=== PATIENT | female | born 1985 | race Caucasian/White ===

== ENCOUNTER 2019-11-07 14:24 | Emergency (ER) | payer OTHER, SELFPAY ==
--- NOTE | ~2019-11-07 | XR_ITS ---
XR shoulder RT 1V DATE: 11/07/2019 14:50 INDICATION: Fall, right shoulder injury, pain TECHNIQUE: 4 views COMPARISON: None FINDINGS: There is a nondisplaced comminuted fracture of the greater tuberosity of the proximal humer us. The fracture extends into the lateral aspect of the right humeral head. No other fracture or dislocation. IMPRESSION: Comminuted nondisplaced fracture greater tuberosity, extending into lateral aspect of hum eral head Reviewed, dictated and finalized at location A. IMPRESSION: Comminuted nondisplaced fracture greater tuberosity, extending into lateral aspect of humeral head
[2019-11-07 14:35] VITALS: BP 145/102; PULSE 86; RESP 20; TEMP 37.4; O2SAT 100
--- NOTE | 2019-11-07 15:06 | ED.UPPEXIN ---
HPI - Extremity Injury (Upper) General Chief Complaint: Extremity Injury, Upper Stated Complaint: Right Shoulder Pain Source: patient Mode of arrival: ambulatory Limitations: no limitations History of Present Illness HPI narrative: The patient, who is a nonsmoker/ occ drinker, presents with c/o rt shoulder pain. Pt states she tripped and fell on her rt side at approximately 100PM [possibly at work , smoking marijuana] . Pt notes tingling to her RUE, but denies any neck pain, back pain or any other injuries following her fall. MD complaint: injury to: shoulder (rt) Onset (ago): hour(s) (2) Other Extremity Injury: Right: shoulder Other injuries: none Place: outdoors Exacerbating factors: movement of extremity Context: fall Associated symptoms: other (tingling to RUE) Related Data Allergies Allergy/AdvReac Type Severity Reaction Status Date / Time Cephalosporins Allergy Mild Verified 11/12/18 06:49 levofloxacin Allergy Mild Unverified 11/12/18 06:49 Quinolones Allergy Mild hives Verified 11/12/18 06:49 silver nitrate Allergy Unknown Verified 11/12/18 06:49 silver sulfadiazine Allergy Unknown Verified 11/12/18 06:49 NITRATE Allergy Unknown Uncoded 11/12/18 06:49 Onions-swelling Allergy Unknown Uncoded 02/16/03 12:04 SILVERPROTEIN Allergy Unknown Uncoded 12/08/08 11:31 Review of Systems Review of Systems: Narrative: The patient has been informed that they may have pre-hypertension or Hypertension based on a BP reading in the department. I recommend that the patient call the primary care provider listed on their discharge instructions or a physician of their choice this week to arrange follow up for further evaluation of possible pre-hypertension or Hypertension General/Constitutional: Denies: weight loss,fever Eyes: Denies: Redness,discharge Ears/Nose/Throat: Denies: Epistaxis,ear discharge Respiratory: Denies: Hemoptysis Gastrointestinal: Denies: Vomiting, Bleeding-rectal PMFSH Social History Social History Gender identity (if verbalized by the patient): Female Comments At time of signature, agree with nursing past medical, surgical, social and family history. There is no relevant family history pertinent to the presenting complaint Exam Narrative: Exam Narrative: General Appearance: Well appearing, Conjunctiva clear Neck: Supple Respiratory: Airway patent, No respiratory distress Shoulder: Normal strength (nonintact/ limited flexion/extension by pain), Tenderness ( laterally/ deltoid , with mod decreased ROM), no swelling (laterally), Skin: Warm, Dry, Normal color Neurological: A&O x3,, Normal affect Course Vital Signs Vital signs: Vital Signs Temperature 99.4 F 11/07/19 14:35 Pulse Rate 86 11/07/19 14:35 Respiratory Rate 20 11/07/19 14:35 Blood Pressure 145/102 H 11/07/19 14:35 Pulse Oximetry 100 11/07/19 14:35 Temperature 99.4 F 11/07/19 14:35 Pulse Rate 86 11/07/19 14:35 Respiratory Rate 20 11/07/19 14:35 Blood Pressure 145/102 H 11/07/19 14:35 Pulse Oximetry 100 11/07/19 14:35 Discharge Plan Discharge Clinical Impression: Fracture, humerus closed Qualifiers: Encounter type: initial encounter Humerus Location: proximal Fracture morphology: unspecified fracture morphology Laterality: right Qualified Code(s): S42.201A - Unspecified fracture of upper end of right humerus, initial encounter for closed fracture Patient Disposition: Home, Self-Care Condition: Improved Instructions: Proximal Humerus Fracture (ED) Prescriptions: New acetaminophen-codeine [Tylenol-Codeine #3] 300-30 mg tablet 1 tablet PO Q4H PRN (Reason: pain) Qty: 20 RF: 0 Interventions: Discharge Disposition Last Done: 11/07/19 15:14 Follow-up/Referrals: Naseem Orellana MD [Physician] - PHYSICIAN,MICROBIAL SPECIALIST [Primary Care Provider] - Discharge Date/Time: 11/07/19 15:29
== END 2019-11-07 15:29 | disposition home or self-care (01) ==
PROVIDERS: Emergency Provider Emergency Medicine
DX: S42.254A Nondisplaced fracture of greater tuberosity of right humerus, initial encounter for closed fracture (principal); W01.0XXA Fall on same level from slipping, tripping and stumbling without subsequent striking against object, initial encounter
CPT/HCPCS: 73020; 99214; G0463

== ENCOUNTER 2020-03-08 10:14 | Outpatient (CLI) | payer OTHER, SELFPAY ==
--- NOTE | 2020-03-08 10:18 | ECG_ITS ---
Measurements Intervals [place] Rate: 78 P: 68 MT: 160 QRS: 53 QRSD: 93 T: 70 QT: 387 QTc: 442 Interpretive Statements SINUS RHYTHM BASELINE ARTIFACT- II, III, AVF NORMAL ECG Electronically Signed On 03-08-2020 10:58:14 CDT by Luis A Michael D.O.
== END 2020-03-08 10:15 | disposition home or self-care (01) ==
PROVIDERS: Visit Provider Orthopaedic Surgery
DX: I10 Essential (primary) hypertension (principal)
CPT/HCPCS: 93005

== ENCOUNTER 2020-03-12 00:54 | Outpatient (CLI) | payer OTHER, SELFPAY ==
[2020-03-12 18:32] LABS: SARS-CoV-2 RNA PCR Negative
== END 2020-03-12 00:55 | disposition home or self-care (01) ==
LOC: ANHCOVIDDT 00:55
PROVIDERS: Visit Provider Orthopaedic Surgery
DX: Z01.812 Encounter for preprocedural laboratory examination (principal); Z11.59 Encounter for screening for other viral diseases
CPT/HCPCS: 87635; C9803; U0003

== ENCOUNTER 2020-03-15 02:22 | Day surgery (SDC) | payer OTHER, SELFPAY ==
[2020-03-07 11:55] VITALS: BMI 24.7
--- NOTE | 2020-03-07 12:42 | PM.IMHP ---
H&P: HPI History of Present Illness Chief complaint: right shoulder adhesive capsulitis Narrative: Julissa Castillo is a 34 year old female Shoulder/Arm Injury/Condition Pt presents with right shoulder pain s/p proximal humerus fracture DOI 11/07/19 ([id number]) Dominant hand: right Current symptoms: Reports instability, stiffness and weakness Location: anterior, proximal and submandibular Character: intermittent Onset: 3-4 weeks Exacerbated by: lifting, rotational activities, prolonged activity, reaching/overhead motion and lying on affected side Chief Complaint Chief Complaint: see Reason for Visit (see hpi) Duration: months Severity: moderate Associated signs and symptoms: symptoms reported: (see hpi) Exacerbating/relieving factors: exacerbating factors: (see hpi) and relieving factors: (see hpi ) Review of Systems Review of Systems: All systems reviewed & are unremarkable except as noted in HPI and below Constitutional: Constitutional: Denies headache(s) and Denies weakness Eyes: Eyes: Denies blurry vision, Denies change in vision and Denies loss of vision ENT: Denies dizziness, Denies dry mouth, Denies headache(s) and Denies nasal congestion Cardiovascular: Cardiovascular: Denies chest pain, Denies syncope, Denies leg edema and Denies dyspnea on exertion Respiratory: Respiratory: Denies cough and Denies dyspnea on exertion Gastrointestinal: Gastrointestinal: Denies abdominal pain, Denies constipation and Denies diarrhea Genitourinary: Genitourinary: Denies urinary frequency Musculoskeletal: Musculoskeletal: Reports as per HPI and Denies numbness Integumentary/Breasts: Skin/Breast: Reports system reviewed and no additional complaints, except as docu Neurologic: Denies dizziness, Denies syncope, Denies headache(s), Denies loss of vision, Denies numbness and Denies weakness Psychiatric: Psychiatric: Reports no additional psychiatric complaints Endocrine: Endocrine: Reports no additional endocrine complaints Hematologic/Lymphatic: Hematologic/Lymphatic: Reports no additional hematologic/lymphatic complaints [facility] Social History Social History Smoking packs per day: 0.5 Smoking cigarettes per day: 10.0 Years smoked: 20 Smoking pack-years: 10.00 Smoking status: Current every day smoker Tobacco type: cigarettes Alcohol intake: current Drinks per week: 2 Substance use: former Substance use type: marijuana Last use: 1-2 YEARS AGO Gender identity (if verbalized by the patient): Female Spiritual care concerns: No Meds Home Medications and Allergies Home Medications Medication Instructions Recorded Confirmed Type ibuprofen 600 - 800 mg PO QID PRN 03/07/20 03/07/20 History Allergies Allergy/AdvReac Type Severity Reaction Status Date / Time levofloxacin Allergy Mild Itching Verified 03/07/20 11:53 Quinolones Allergy Mild Itching Verified 03/07/20 11:53 silver nitrate Allergy Unknown Hives Verified 03/07/20 11:53 silver sulfadiazine Allergy Unknown Hives Verified 03/07/20 11:53 NITRATE Allergy Unknown Hives Uncoded 03/07/20 11:53 Onions-swelling Allergy Unknown Swelling Uncoded 03/07/20 11:53 SILVERPROTEIN Allergy Unknown Hives Uncoded 03/07/20 11:53 Exam Narrative: Exam Narrative: Const All systems reviewed & are unremarkable except as noted in HPI and below Reports no additional complaints Eyes Reports no additional complaints ENT Reports no additional complaints Card Reports no additional complaints Resp Reports no additional complaints GI Reports no additional complaints Reports no additional complaints Musc Reports as per HPI Skin/Breast Reports system reviewed and no additional complaints, except as documented Neuro Reports no additional complaints Psych Reports no additional complaints Endo Reports no additional complaints Chris/Lymph Reports no additional complaints Aller/Immun Reports no additi
[2020-03-15] VITALS (8 sets, daily range): BP systolic 138–173; BP diastolic 91–113; PULSE 61–87; RESP 14–18; TEMP 36.4–36.9; O2SAT 99–100
[2020-03-15] MEDS: LACTATED RINGERS 1,000 ML 30 ML IV CONT ×2 (09:50→12:30)
[2020-03-15] MEDS: ACETAMINOPHEN 500 MG TABLET 1000 MG PO (09:50)
[2020-03-15] MEDS: CELECOXIB 200 MG CAPSULE PO (09:50)
--- NOTE | 2020-03-15 11:10 | WPDHPUPDATE1 ---
History and Physical Update Update Date/Time: 03/15/20 11:10 History and Physical has been reviewed, including an updated exam of the patient. There are NO changes in the patient's condition. Risks, benefits, and alternatives have been discussed and questions answered. Patient agrees to proceed with procedure.
--- NOTE | 2020-03-15 11:11 | WPDHPUPDATE1 ---
History and Physical Update Update Date/Time: 03/15/20 11:11 History and Physical has been reviewed, including an updated exam of the patient. There are NO changes in the patient's condition. Risks, benefits, and alternatives have been discussed and questions answered. Patient agrees to proceed with procedure.
--- NOTE | 2020-03-15 11:20 | WPDANESEPPF ---
Anes - Initial Pre Proc Eval Procedure: Operation Date: 03/15/20 11:00 Proposed Procedures p Right Shoulder Manipulation Under Anesthesia, Right Shoulder Injection - Naseem Orellana MD Date/Time: 03/15/20 11:20 Surgeon: Naseem Orellana MD Pre Op Diagnosis: right shoulder adhesive capsulitis Patient Data Age: 34 Gender: F Height: 5 ft 3 in Weight: 66.7 kg Allergies Allergy/AdvReac Type Severity Reaction Status Date / Time levofloxacin Allergy Mild Itching Verified 03/15/20 09:30 Quinolones Allergy Mild Itching Verified 03/15/20 09:30 silver nitrate Allergy Unknown Hives Verified 03/15/20 09:30 silver sulfadiazine Allergy Unknown Hives Verified 03/15/20 09:30 NITRATE Allergy Unknown Hives Uncoded 03/15/20 09:30 Onions-swelling Allergy Unknown Swelling Uncoded 03/15/20 09:30 SILVERPROTEIN Allergy Unknown Hives Uncoded 03/15/20 09:30 Home Medications Medication Instructions Recorded Confirmed Type ibuprofen 600 - 800 mg PO QID PRN 03/07/20 03/15/20 History Patient hx anesthesia problems: none Family hx anesthesia problems: none PMFSH Social History Social History Smoking packs per day: 0.5 Smoking cigarettes per day: 10.0 Years smoked: 20 Smoking pack-years: 10.00 Smoking status: Current every day smoker Tobacco type: cigarettes Alcohol intake: current Drinks per week: 2 Substance use: former Substance use type: marijuana Last use: 1-2 YEARS AGO Gender identity (if verbalized by the patient): Female Spiritual care concerns: No Anes - Eval Final PreProcedure Day of Procedure 03/15/20 11:20 Patient weight: overweight Heart: regular rate and rhythm Lungs: clear to auscultation Airway: Mallampati scale class II Neurological: alert and oriented Last oral intake: >/= 8 hours ASA classification: III Emergent: no Anesthetic plan: proceed Anesthesia type and monitoring: general ETT and standard monitoring Informed Consent: The patient's anesthetic plan and its attendant risks and benefits were discussed with the patient/family/POA. Questions were solicited and answers provided to the satisfaction of the patient/family/POA.
[2020-03-15] MEDS: SCOPOLAMINE 1.5 MG PATCH TRANSDERM (11:29)
[2020-03-15] MEDS: methylPREDNISolone ACETATE 80 MG/ML VIAL IM (12:07)
--- NOTE | 2020-03-15 12:56 | SUR.PHASEI ---
DR GAO AT BEDSIDE SPEAKING TO PT. HE GENTLY MOVED RT ARM. PT TOLERATED WELL.
--- NOTE | 2020-03-15 12:56 | PM.OP ---
Procedure Note - Brief Procedure Note - Brief Date of procedure: 03/15/20 Pre-op diagnosis: right shoulder adhesive capsulitis Post-op diagnosis: same Procedure performed: left shoulder michael with injection Anesthesia: GETA Surgeon: Naseem Orellana MD Estimated blood loss (mL): 0 Complications: No immediate complications Condition: stable Disposition: PACU
--- NOTE | 2020-03-15 13:01 | SUR.PHASEI ---
DR LOVING NOTIFIED OF PT'S BP, 150-160/100'S. HR 68. PT MAY GO HOME. PT TO FOLLOW UP WITH PMD REGARDING BP.
--- NOTE | 2020-03-15 13:06 | SUR.PHASEI ---
PT TEARFUL. STATES SHE WANTS A PRESCRIPTION FOR PAIN MEDICATION TO GO HOME WITH. PT DID NOT TELL DR GAO THAT WHEN HE WAS AT BEDSIDE. WILL NOTIFY DR GAO WHEN HE IS OUT OF OR. PT VERBALIZED UNDERSTANDING. PT READY TO GO TO [facility] FOR A DRINK.
--- NOTE | 2020-03-16 12:17 | OP_ITS ---
DATE OF PROCEDURE: 03/15/2020 PREOPERATIVE DIAGNOSIS: Right shoulder adhesive capsulitis. POSTOPERATIVE DIAGNOSIS: Right shoulder adhesive capsulitis. PROCEDURE: Manipulation under anesthesia and injection of right shoulder. ANESTHESIA: General. COMPLICATIONS: None. INDICATIONS: This is a 34-year-old female who while at work, she sustained a fracture of the greater tuberosity, which was nondisplaced. After approximately 3 weeks, she attempted to have physical therapy, which because of financial reasons, she was unable. Eventually when the patient came and saw me, she had already as well issued Workmen's Compensation claim, and then she was able to do therapy, but then therapy did not help with motion and she developed adhesive capsulitis to the right shoulder and she did not progress and she was having pain. Once her fracture was healed, she was indicated for manipulation under anesthesia, right shoulder. DESCRIPTION OF PROCEDURE: The patient was taken to the operating room in stable condition today, placed in supine position. General anesthesia was induced, and then once the patient was chemically paralyzed, the right shoulder was manipulated. Audible lysis of adhesions were achieved, both in the abduction, forward flexion and internal and external rotation at both 90 degrees. Pictures were taken to assess the patient's passive range of motion. Once that was performed, then the right shoulder was prepped and approximately 2 cc of 80 mg of Depo-Medrol and 5 cc of Marcaine 0.5% without epinephrine were injected in the glenohumeral joint. The patient then was placed in a sterile dressing. She had her chemical paralysis reversed, and then she was sent to recovery room in stable condition. Elena I MT: [place]
== END 2020-03-15 14:10 | disposition home or self-care (01) ==
PROVIDERS: Visit Provider Orthopaedic Surgery
PROC: (CPT 23700; principal; 2020-03-15 11:00)
DX: M75.01 Adhesive capsulitis of right shoulder (principal); Z87.81 Personal history of (healed) traumatic fracture; F17.210 Nicotine dependence, cigarettes, uncomplicated
CPT/HCPCS: 23700; A9270; J0330; J1040; J2250; J2704; J3010; J7120

== ENCOUNTER 2020-08-20 13:24 | Emergency (ER) | payer OTHER, SELFPAY ==
--- NOTE | ~2020-08-20 | XR_ITS ---
EXAMINATION: XR chest 1V portable EXAM DATE: 08/20/2020 14:15 INDICATION: sob, wheezing . TECHNIQUE: Portable AP frontal chest x-ray was obtained. Comparison is made to prior examination from 05/01/2010. FINDINGS: The lungs are clear. There are no pleural effusions. The cardiomediastinal silhouette is within normal limits. There is no pneumothorax suspected. The bones and soft tissues are unremarkab le. IMPRESSION: No acute cardiopulmonary findings. Reviewed, dictated and finalized at location A. ROBE SPECIALIST
[2020-08-20 13:32] VITALS: BP 150/112; PULSE 99; RESP 18; TEMP 36.3; O2SAT 97
--- NOTE | 2020-08-20 14:06 | ED.SOB ---
HPI - SOB/Dyspnea General Chief Complaint: Shortness of Breath/Dyspnea Stated Complaint: short of breath Time Seen by Provider: 08/20/20 13:39 Source: patient Mode of arrival: ambulatory Limitations: no limitations History of Present Illness HPI Narrative: This patient is a 35 year old female with history of asthma who presents for evaluation of shortness of breath /asthma. She states she has been coughing for 6 days. She reports on Saturday and saturday feeling feverish and fatigue. She was evaluated at [facility] 2 days ago. She was treated with an albuterol inhaler, and she was given a steroid pill. She states they would not give her a neb treatment due to COVID. She is still coughing and she feels like she needs a breathing treatment. She states she was not discharged with any prescriptions. She was tested for COVID 2 days ago and she was negative. Related Data Home Medications Medication Instructions Recorded Confirmed ibuprofen 600 - 800 mg PO QID PRN 03/07/20 05/16/20 Allergies Allergy/AdvReac Type Severity Reaction Status Date / Time levofloxacin Allergy Mild Itching Verified 08/20/20 13:50 Quinolones Allergy Mild Itching Verified 08/20/20 13:50 silver nitrate Allergy Unknown Hives Verified 08/20/20 13:50 silver sulfadiazine Allergy Unknown Hives Verified 08/20/20 13:50 NITRATE Allergy Unknown Hives Uncoded 08/20/20 13:50 Onions-swelling Allergy Unknown Swelling Uncoded 08/20/20 13:50 SILVERPROTEIN Allergy Unknown Hives Uncoded 08/20/20 13:50 Review of Systems Review of Systems: All systems reviewed & are unremarkable except as noted in HPI and below Constitutional: Constitutional: Denies chills and Denies fever(s) ENT: Reports sore throat Cardiovascular: Cardiovascular: Denies chest pain Respiratory: Respiratory: Reports cough, Reports dyspnea and Reports wheezing Gastrointestinal: Gastrointestinal: Denies abdominal pain, Denies nausea and Denies vomiting [facility] Past Medical History Medical History (Updated 08/20/20 @ 16:04 by Carly Fall MD) Asthma Social History Social History Smoking packs per day: 0.5 Smoking cigarettes per day: 10.0 Years smoked: 20 Smoking pack-years: 10.00 Smoking status: Current every day smoker Tobacco type: cigarettes Alcohol intake: current Drinks per week: 2 Substance use: former Substance use type: marijuana Last use: 1-2 YEARS AGO Gender identity (if verbalized by the patient): Female Spiritual care concerns: No Exam Const: General: no acute distress and alert Orientation/consciousness: patient oriented x3 HENMT: Head: normocephalic and atraumatic Ears: TM's normal bilaterally Face and sinus: face symmetric Throat: posterior oropharynx normal Eyes: EOM: EOMs intact bilaterally Resp: Effort & Inspection: normal respiratory effort, not labored, no retractions and not tachypneic Auscultation: wheezes Other: able to speak in complete sentences Cardio: Rate: regular rate Rhythm: regular rhythm Heart sounds: no murmurs GI: GI Palp: Yes Soft to palpation, No Tenderness to palpation present (GI) and No Guarding due to palpation present (GI) Auscultation: normal bowel sounds Skin: General skin exam: normal color Rashes: no rashes Neuro: General: patient oriented x3 and moves all extremities Course Reevaluation(s) Reevaluation #1: Patient states she feels better. Her lung sounds are clear. I Discussed discharge plan. She reports she has a nebulizer so I will prescribed solution and steroids. Date: 08/20/20 Time: 16:03 Vital Signs Vital signs: Vital Signs Temperature 97.3 F L 08/20/20 13:32 Pulse Rate 99 08/20/20 13:32 Respiratory Rate 18 08/20/20 13:32 Blood Pressure 150/112 H 08/20/20 13:32 Pulse Oximetry 97 08/20/20 13:32 Temperature 97.3 F L 08/20/20 13:32 Pulse Rate 100 08/20/20 16:16 Respiratory
[2020-08-20] MEDS: predniSONE 20 MG TABLET 60 MG PO (14:16)
[2020-08-20] MEDS: IPRATROPIUM BR 0.02% INH SOLN 0.5 MG/2.5 ML VIAL INHALATION (14:46)
[2020-08-20] MEDS: ALBUTEROL SULFATE NEB 2.5 MG/0.5 ML INH 5 MG INHALATION (14:46)
[2020-08-20 14:49] VITALS: PULSE 92; RESP 20
[2020-08-20 14:55] VITALS: PULSE 88; RESP 20
[2020-08-20 16:16] VITALS: BP 138/82; PULSE 100; RESP 20; O2SAT 97
== END 2020-08-20 16:17 | disposition home or self-care (01) ==
PROVIDERS: Emergency Provider General Practice
DX: J45.901 Unspecified asthma with (acute) exacerbation (principal)
CPT/HCPCS: 71045; 94640; 99283; J7512

== ENCOUNTER → 2020-11-28 00:18 | Outpatient (CLI) | payer OTHER, SELFPAY ==
[2020-11-28 19:29] LABS: SARS-CoV-2 RNA PCR Negative
== END ==
PROVIDERS: PCP Nurse Practitioner Family; Visit Provider Surgery
DX: Z01.812 Encounter for preprocedural laboratory examination (principal); Z20.822 Contact with and (suspected) exposure to COVID-19
CPT/HCPCS: C9803; U0003; U0005

== ENCOUNTER 2020-12-01 00:50 | Day surgery (SDC) | payer OTHER, SELFPAY ==
[2020-11-23 15:27] VITALS: BMI 26.7
--- NOTE | 2020-12-01 12:59 | WPDHPUPDATE1 ---
History and Physical Update Update Date/Time: 12/01/20 12:59 History and Physical has been reviewed, including an updated exam of the patient. There are NO changes in the patient's condition. Risks, benefits, and alternatives have been discussed and questions answered. Patient agrees to proceed with procedure. Patient c additional cyst in R mid scalp measuring approx 3x2 cm that she would like removed. I marked area and agree to excisional biopsy along c other 3 scalp cyst as documented.
[2020-12-01] MEDS: LACTATED RINGERS 1,000 ML 30 ML IV CONT (13:04)
--- NOTE | 2020-12-01 13:11 | WPDANESEPPF ---
Anes - Initial Pre Proc Eval Procedure: Operation Date: 12/01/20 14:30 Proposed Procedures p Excisional Biopsy Of Scalp Cyst Times Three - Breanna Hughes MD Date/Time: 12/01/20 13:11 Surgeon: Breanna Hughes MD Pre Op Diagnosis: excision of scalp cyst x3 Patient Data Age: 35 Gender: F Height: 5 ft 3 in Weight: 68.5 kg Allergies Allergy/AdvReac Type Severity Reaction Status Date / Time levofloxacin Allergy Mild Itching Verified 11/23/20 15:26 Quinolones Allergy Mild Itching Verified 11/23/20 15:26 silver nitrate Allergy Unknown Hives Verified 11/23/20 15:26 silver sulfadiazine Allergy Unknown Hives Verified 11/23/20 15:26 NITRATE Allergy Unknown Hives Uncoded 11/23/20 15:26 SILVERPROTEIN Allergy Unknown Hives Uncoded 11/23/20 15:26 Home Medications Medication Instructions Recorded Confirmed Type albuterol sulfate 2.5 mg INHALATION Q4H PRN #90 ml 08/20/20 12/01/20 Rx fluticasone propionate 44 2 puff INHALATION BID #10.6 g 11/15/20 12/01/20 Rx mcg/actuation HFA aerosol inhaler amlodipine 5 mg PO HS 11/23/20 12/01/20 History escitalopram oxalate 10 mg PO HS 11/23/20 12/01/20 History Patient hx anesthesia problems: post op nausea/vomiting Family hx anesthesia problems: none PMFSH Past Medical History Medical History Anxiety Asthma BMI 26.0-26.9,adult Depression Diarrhea Encounter to establish care Environmental allergies Hypertension Rhinitis Scalp cyst Tobacco abuse Surgical History Surgical History History of delivery History of shoulder surgery Social History Social History Smoking packs per day: 0.5 Smoking cigarettes per day: 10.0 Years smoked: 20 Smoking pack-years: 10.00 Smoking status: Current every day smoker Tobacco type: cigarettes Alcohol intake: current Drinks per week: 2 Alcohol use details: 2/MONTH Substance use: never Substance use type: does not use Last use: 1-2 YEARS AGO Living arrangements: with family Gender identity (if verbalized by the patient): Female Spiritual care concerns: No Anes - Eval Final PreProcedure Day of Procedure 12/01/20 13:11 Patient weight: overweight Heart: regular rate and rhythm Lungs: clear to auscultation Airway: Mallampati scale class II Neurological: alert and oriented Last oral intake: >/= 8 hours ASA classification: III Emergent: no Anesthetic plan: proceed Anesthesia type and monitoring: general GIVS and standard monitoring Informed Consent: The patient's anesthetic plan and its attendant risks and benefits were discussed with the patient/family/POA. Questions were solicited and answers provided to the satisfaction of the patient/family/POA.
[2020-12-01 13:13] VITALS: BP 142/93; PULSE 81; RESP 20; TEMP 36.6; O2SAT 98
[2020-12-01] MEDS: ceFAZolin 2 GM/D5W 50 ML 2 GM/50 ML BAG IVPB (13:52)
[2020-12-01] MEDS: SCOPOLAMINE 1.5 MG PATCH TRANSDERM (13:52)
[2020-12-01] MEDS: BUPIVACAINE/EPINEPHRINE 0.5% 30 ML VIAL INFILTRATE (14:53)
[2020-12-01 15:00] VITALS: BP 115/62; PULSE 70; RESP 12; O2SAT 100
[2020-12-01 15:30] VITALS: BP 129/84; PULSE 64; RESP 14
--- NOTE | 2020-12-01 15:33 | PM.PROC ---
Procedure Note - Detailed Date of procedure: 12/01/20 Pre-op diagnosis: excision of scalp cyst x3 scalp cyst x 4 Post-op diagnosis: other Procedure performed: scalp cyst x 4, mid frontal 4x3, L post 4x3, L mid 4x3, R mid 3x2 Description of procedure: The patient was taken to the operating room and placed in the lateral position. After adequate induction of mac anesthesia, the patient was prepped and draped in the normal sterile fashion. A time-out was then done to verify the patient's identity, as well as the procedure being performed. We began by localizing all these areas that had been previously marked in the preoperative area. Once all 4 areas were adequately localized, I made an incision over the cyst on the mid frontal scalp. The incision was carried down through the dermis to the level of the subcutaneous tissue. At this point a large cyst was noted and I was able to bluntly dissect around the cyst. I then was able to remove the cyst in full. I then gained hemostasis with the Bovie cautery and closed the cavity with 4 O Monocryl subcuticular suture. Dermabond was then placed on wound. I then proceeded to repeat the same procedure on the left posterior scalp cyst. Again I was able to remove the cyst in full after bluntly dissecting around it. Again was closed with 4 O Monocryl subcuticular suture and Dermabond was placed. The procedure was repeated on the left mid scalp cyst , as well as the right mid scalp cyst. These were both excised in full and closed with Monocryl and Dermabond. The patient tolerated these procedures well and was alert and awake in the operating room postoperatively. She will be transferred to recovery room in stable condition. Anesthesia: MAC and local Surgeon: Breanna Hughes MD Estimated blood loss (mL): 15 Drains: No Packing: No Pathology: yes Complications: No immediate complications Condition: stable Disposition: PACU Findings: scalp cyst x 4, mid frontal 4x3, L post 4x3, L mid 4x3, R mid 3x2
== END 2020-12-01 15:50 | disposition home or self-care (01) ==
PROVIDERS: PCP Nurse Practitioner Family; Visit Provider Surgery
PROC: (CPT 11426; principal; 2020-12-01 14:30)
DX: L72.11 Pilar cyst (principal); I10 Essential (primary) hypertension; J45.909 Unspecified asthma, uncomplicated; F41.8 Other specified anxiety disorders; Z79.51 Long term (current) use of inhaled steroids; F17.210 Nicotine dependence, cigarettes, uncomplicated
CPT/HCPCS: 11426 ×2; 88304; 88305; A9270; J0690; J1100; J2250; J2405; J2704; J3010; J7120

== ENCOUNTER 2020-12-19 13:03 | Outpatient (CLI) | payer OTHER, SELFPAY | END 2020-12-19 13:04 | disposition home or self-care (01) | LOC: ANHCOVIDVC 13:04 | PROVIDERS: PCP Nurse Practitioner Family | DX: Z23 Encounter for immunization (principal) | CPT/HCPCS: 0001A; 91300 ==

== ENCOUNTER 2021-01-09 13:10 | Outpatient (CLI) | payer OTHER, SELFPAY | END 2021-01-09 13:11 | disposition home or self-care (01) | LOC: ANHCOVIDVC 13:10 | PROVIDERS: PCP Nurse Practitioner Family | DX: Z23 Encounter for immunization (principal) | CPT/HCPCS: 0002A; 91300 ==

== ENCOUNTER 2021-05-09 14:12 | Emergency (ER) | payer OTHER, SELFPAY ==
[2021-05-09 14:23] VITALS: BP 126/90; PULSE 91; RESP 18; TEMP 36.8; O2SAT 97
--- NOTE | 2021-05-09 14:52 | ED.URI ---
HPI - URI/Sore Throat General Chief Complaint: Upper Respiratory Infection Stated Complaint: Sore Throat Time Seen by Provider: 05/09/21 14:34 Source: patient and RN notes reviewed Mode of arrival: ambulatory Limitations: no limitations History of Present Illness HPI Narrative: Patient presents today complaint of a sore throat, hoarse voice, and swelling to the right neck lymph node x3 months. Patient was seen a few months ago in an ER in 1 month ago at her PCPs office on 04/07/2021. At that time she was given a prescription for prednisone, which she finished. States while she was taking the prednisone, her symptoms improved slightly, but then worsened again when she stopped taking it. Denies fever, cough, shortness of breath, difficulty swallowing, postnasal drainage or congestion. Currently rates her pain 3/10, which increases with speaking. She has not tried any [id number] medications for symptoms prior to arrival. States she does have a follow-up appointment scheduled in April with her PCP, but does not know what day. MD elicited complaint: sore throat Related Data Allergies Allergy/AdvReac Type Severity Reaction Status Date / Time levofloxacin Allergy Mild Itching Verified 05/09/21 14:45 Quinolones Allergy Mild Itching Verified 05/09/21 14:45 silver nitrate Allergy Unknown Hives Verified 05/09/21 14:45 silver sulfadiazine Allergy Unknown Hives Verified 05/09/21 14:45 NITRATE Allergy Unknown Hives Uncoded 05/09/21 14:45 SILVERPROTEIN Allergy Unknown Hives Uncoded 05/09/21 14:45 Review of Systems Review of Systems: CONSTITUTIONAL: Denies body aches, fever, chills, or sweats. EYES: Denies visual changes, redness, or discharge. ENT: Denies rhinorrhea, congestion, or otalgia.+ Sore throat, hoarse voice, right lymph node swelling CARDIOVASCULAR: Denies chest pain, palpitations, or edema. RESPIRATORY: Denies cough or dyspnea. GASTROINTESTINAL: Denies abdominal pain, nausea, vomiting, or diarrhea. GENITOURINARY: Denies dysuria or hematuria. SKIN: Denies rash, itching, or wounds. MUSCULOSKELETAL: Denies back pain, joint pain, or myalgia. NEUROLOGIC: Denies headache, numbness, tingling, or weakness. PSYCH: Denies depression or anxiety. [facility] Past Medical History Medical History Anxiety Asthma BMI 26.0-26.9,adult Depression Diarrhea Encounter to establish care Environmental allergies Hypertension Pharyngitis Rhinitis Scalp cyst Tobacco abuse UTI (urinary tract infection) Surgical History Surgical History H/O excision of mass scalp cyst x 4, mid frontal 4x3, L post 4x3, L mid 4x3, R mid 3x2 History of delivery History of shoulder surgery Social History Social History Smoking packs per day: 0.5 Smoking cigarettes per day: 10.0 Years smoked: 20 Smoking pack-years: 10.00 Smoking status: Current every day smoker Tobacco type: cigarettes Alcohol intake: current Drinks per week: 2 Alcohol use details: 2/MONTH Substance use: never Substance use type: does not use Last use: 1-2 YEARS AGO Gender identity (if verbalized by the patient): Female Spiritual care concerns: No Comments At time of signature, I have reviewed and agree with nursing past medical, surgical, social and family history unless otherwise noted. Please see nursing chart for further information. There is no relevant family history pertinent to the presenting complaint Exam Narrative: GENERAL: Well-appearing, well-nourished, and in no acute distress. HEAD: Normocephalic, atraumatic. EYES: EOMI. No redness or drainage. Conjunctivae normal. ENT: Mucous membranes pink and moist. Nares clear. No rhinorrhea. TMs normal bilaterally. Throat mildly erythematous without edema or exudate. Uvula midline. Voice is very hoarse. NECK:
== END 2021-05-09 15:00 | disposition home or self-care (01) ==
PROVIDERS: Emergency Provider Nurse Practitioner; PCP Nurse Practitioner Family
DX: J02.9 Acute pharyngitis, unspecified (principal); J04.0 Acute laryngitis; I10 Essential (primary) hypertension; F32.9 Major depressive disorder, single episode, unspecified; F41.9 Anxiety disorder, unspecified; F17.210 Nicotine dependence, cigarettes, uncomplicated
CPT/HCPCS: 87081; 87880; 99213; G0463

== ENCOUNTER → 2021-06-02 10:39 | Emergency (ER) | payer OTHER, SELFPAY | END | disposition left against medical advice (07) | LOC: ANHED 10:53 | PROVIDERS: PCP Nurse Practitioner Family | DX: Z53.21 Procedure and treatment not carried out due to patient leaving prior to being seen by health care provider (principal) | CPT/HCPCS: 99199 ==

== ENCOUNTER 2021-06-02 11:03 | Emergency (ER) | payer OTHER, SELFPAY ==
--- NOTE | ~2021-06-02 | XR_ITS ---
EXAMINATION: XR chest 2V DATE: 06/02/2021 11:56 INDICATION: Shortness of breath TECHNIQUE: PA and lateral views of the chest are obtained. COMPARISON: 08/20/2020 FINDINGS: The lungs are free of acute opacities. There is no pleural effusion or pneumothorax. The ca rdiomediastinal silhouette is normal. There is mild thoracic spondylosis. IMPRESSION: 1. No acute cardiopulmonary abnormality. Reviewed, dictated and finalized at location A.
[2021-06-02 11:11] VITALS: BP 129/83; PULSE 92; RESP 20; TEMP 36.8; O2SAT 97
--- NOTE | 2021-06-02 11:47 | ED.SOB ---
HPI - SOB/Dyspnea General Chief Complaint: Shortness of Breath/Dyspnea Stated Complaint: sob Time Seen by Provider: 06/02/21 11:47 Source: patient Mode of arrival: ambulatory Limitations: no limitations History of Present Illness HPI Narrative: Julissa Castillo is a 36 yo female with a PMH of asthma comes with asthma exacerbation has been going on for 2 days. She was seen at [facility] on Saturday and they would not give it nebulized treatment in the age of Covid and they gave her Medrol Dosepak and the rescue inhaler and she is not improving. While the nurses interviewing her she was having difficulty completing full sentences Related Data Home Medications Medication Instructions Recorded Confirmed folic acid PO 05/25/21 05/30/21 Allergies Allergy/AdvReac Type Severity Reaction Status Date / Time levofloxacin Allergy Mild Itching Verified 06/02/21 11:45 Quinolones Allergy Mild Itching Verified 06/02/21 11:45 silver nitrate Allergy Unknown Hives Verified 06/02/21 11:45 silver sulfadiazine Allergy Unknown Hives Verified 06/02/21 11:45 NITRATE Allergy Unknown Hives Uncoded 06/02/21 11:45 SILVERPROTEIN Allergy Unknown Hives Uncoded 06/02/21 11:45 Review of Systems Review of Systems: CONSTITUTIONAL: Denies fever, chills, sweats. EYES: Denies visual changes, redness, discharge. ENT: Denies rhinorrhea, congestion, sore throat, otalgia. CARDIOVASCULAR: Denies chest pain, palpitations, edema. RESPIRATORY has dyspnea, has wheezing, productive cough GASTROINTESTINAL: Denies abdominal pain, nausea, vomiting, diarrhea. GENITOURINARY: Denies dysuria, hematuria, abnormal discharge SKIN: Denies rash or itching. NEUROLOGIC: Denies numbness, or focal weakness. PSYCHIATRIC: Denies anxiety or depression. [facility] Past Medical History Medical History Anemia Anxiety Asthma BMI 26.0-26.9,adult BMI 28.0-28.9,adult Chronic pharyngitis Depression Diarrhea Encounter to establish care Enlarged lymph node in neck Environmental allergies Folic acid deficiency Hypertension Pharyngitis Rhinitis Scalp cyst Seasonal allergies Tobacco abuse UTI (urinary tract infection) Surgical History Surgical History H/O excision of mass scalp cyst x 4, mid frontal 4x3, L post 4x3, L mid 4x3, R mid 3x2 History of delivery History of shoulder surgery Social History Social History Smoking packs per day: 0.5 Smoking cigarettes per day: 10.0 Years smoked: 20 Smoking pack-years: 10.00 Smoking status: Current every day smoker Tobacco type: cigarettes Alcohol intake: current Drinks per week: 2 Alcohol use details: 2/MONTH Substance use: never Substance use type: does not use Last use: 1-2 YEARS AGO Gender identity (if verbalized by the patient): Female Spiritual care concerns: No Comments At time of signature, I agree with nursing past medical, surgical, social and family history. There is no relevant family history pertinent to the presenting complaint. Exam Narrative: GENERAL: This is a well-nourished, well-developed patient, in moderate distress. HEAD: normocephalic, atraumatic. EYES: Sclera clear/white. Vision is grossly intact. EARS: External ears normal, Hearing grossly intact. NOSE: External nose normal without nasal discharge, nares without redness, no rhinorrhea. THROAT: Mucous membranes moist, posterior pharynx NECK: Neck supple, CARDIOVASCULAR: Regular rate and rhythm without murmurs, gallops, or rubs. RESPIRATORY: Diminished to auscultation. Limited air movement .with inspiratory wheezes,expiratory rhonchi on lower R. GASTROINTESTINAL: Abdomen soft, SKIN: warm, intact with no suspicious lesions or rash, good texture and turgor. NEURO: awake, alert, and oriented to person, place and time. There were no obvious focal
[2021-06-02] MEDS: methylPREDNISolone SOD SUCC 125 MG VIAL IM (11:57)
[2021-06-02] MEDS: ALBUTEROL SULFATE NEB 2.5 MG/3 ML INH INHALATION (11:58)
[2021-06-02] MEDS: IPRATROPIUM BR 0.02% INH SOLN 0.5 MG/2.5 ML VIAL INHALATION (11:58)
[2021-06-02 12:30] VITALS: PULSE 98; RESP 18; O2SAT 99
== END 2021-06-02 12:49 | disposition home or self-care (01) ==
PROVIDERS: Emergency Provider Nurse Practitioner; PCP Nurse Practitioner Family
DX: J45.41 Moderate persistent asthma with (acute) exacerbation (principal); F17.210 Nicotine dependence, cigarettes, uncomplicated; I10 Essential (primary) hypertension; D64.9 Anemia, unspecified; D52.9 Folate deficiency anemia, unspecified
CPT/HCPCS: 71046; 94640; 96372; 99213; G0463; J2930

== ENCOUNTER 2023-05-20 14:45 | Outpatient (RCR) | payer OTHER, SELFPAY ==
--- NOTE | 2023-03-26 14:31 | PTOPEVAL1 ---
Assessment and note entered by Pao Pennington, PT Evaluation Information Assessment Status Evaluation Diagnosis Low back pain, dorsalgia Subjective Information Reports was able to see a chiropractor in 2020 which helped but has not been able to continue this. Had to quit her [employer] job because coudn 't tolerate the pain in her back from standing. [place] like she was having cramps in her back. Reported Pain Level Pain Score 2: Self Report Assessment PT Clinical Summary Pt presents with c/o back pain that has limited her ability to keep a job as she cannot stand long enough for a shift without severe pain. Pt demo's multple areas of decreased strength, abnormal resting muscle tone and tenderness, and abnormal pelvic alignment. Pt will benefit from physcial therapy to address deficits and improve pain to allow improved function. Plan of Care Interventions Electrical Stimulation,Hot Pack/Cold Pack,Manual Therapy,Neuro Re-education,Patient/Caregiver Educati,Therapeutic Activities,Therapeutic Exercise,Ultrasound PT Services Indicated Yes Treatment Frequency and 2x weekly x 4 weeks Duration These treatments will address the objective and functional deficits as defined above. The patient will be advanced safely and appropriately in order for the patient to progress towards his/her prior level of function. Additional exercises will be introduced and as well as a comprehensive home exercise program upon discharge, if needed, ?to ensure carryover of functional gains achieved in the clinic. This treatment plan has been reviewed and agreement upon by the patient.
--- NOTE | 2023-03-26 14:32 | OPREHPOC ---
Outpatient Therapy Plan of Care This is a Multidisciplinary Plan of Care that may contain components documented by all disciplines (PT, OT, and ST.) PT Goal 1 Goal Pt will be independent in HEP Target Visit 8 PT Goal 2 Goal Pt will verbalize understanding of diagnosis and prognosis Target Visit 8 PT Problem 2 PT Problem #2 Impaired Strength PT Goal 1 Goal Pt will demo strength of 4/5 BLE in all tested planes Target Visit 8 PT Goal 2 Goal Pt will demo 3/5 lower abdominal strength Target Visit 8 PT Problem 3 PT Problem #3 Pain PT Goal 1 Goal Pt will report greatest pain level at 3/10 or less Target Visit 8 PT Goal 2 Goal Pt will report resolution of pain Target Visit 16
--- NOTE | 2023-04-23 17:20 | PTOPPROG ---
Assessment and note entered by Pao Pennington, PT Assessment Status Progress Diagnosis Low back pain, dorsalgia Subjective Information Self perceived improvement: 52.5% Has seen improvement in walking. Didn't think would have been able to walk for 5 hours at work if hadn't started therapy. The hips aren't hurting any more, and back only hurts when doing home stuff. Used to have to take breaks every half hour for hip pain and now can walk all day. Pt has not been able to get down on the floor to bathe her kids because of back pain because of bending over the tub. Her eldest daughter helps her with this. Hasn't been able to try that yet. Assessment PT Clinical Summary Pt has attended therapy consistently for her back pain. Today she reports feeling 52.5% improved overall, that she has been able to work her shifts with less pain, walk more with less pain, and reports worst pain level at 7/10 down from 9/10. She shows improved pelvic alignment, and improved overall strength as well. She has met some of her goals related to therapy, but has yet to meet her strength goals and pain goals. Thus as patient is continuing to improve, she will benefit from continued therapy to continue progress and allow her to reach her most pain-free and functional ability. Plan of Care Interventions Electrical Stimulation,Hot Pack/Cold Pack,Manual Therapy,Neuro Re-education,Patient/Caregiver Educati,Therapeutic Activities,Therapeutic Exercise,Ultrasound PT Services Indicated Yes Treatment Frequency and Cont 1-2x weekly x 4 weeks Duration These treatments will address the objective and functional deficits as defined above. The patient will be advanced safely and appropriately in order for the patient to progress towards his/her prior level of function. Additional exercises will be introduced and as well as a comprehensive home exercise program upon discharge, if needed, ?to ensure carryover of functional gains achieved in the clinic. This treatment plan has been reviewed and agreement upon by the patient.
--- NOTE | 2023-04-23 17:20 | OPREHPOC ---
Outpatient Therapy Plan of Care This is a Multidisciplinary Plan of Care that may contain components documented by all disciplines (PT, OT, and ST.) PT Goal 1 Goal Pt will be independent in HEP Target Visit 8 Progress Met PT Goal 2 Goal Pt will verbalize understanding of diagnosis and prognosis Target Visit 8 Progress Met PT Problem 2 PT Problem #2 Impaired Strength PT Goal 1 Goal Pt will demo strength of 4/5 BLE in all tested planes Target Visit 8 Comment Progreesed from 3/5 to 3+/5 hip extension and 4-/5 hip abd bilat PT Goal 2 Goal Pt will demo 3/5 lower abdominal strength Target Visit 8 Progress Met Comment 3+/5 from 2/5 PT Problem 3 PT Problem #3 Pain PT Goal 1 Goal Pt will report greatest pain level at 5/10 or less Target Visit 8 Progress Partially Met Comment updated from 3/10 to 5/10 as pt reports her normal baseline is 3/10 Progressed worst rating from 9/10 to 7/10 PT Goal 2 Goal Pt will report worst pain at 3/10 Target Visit 16 Progress Partially Met Comment updated from 0/10 to 3/10 as pt reports her normal baseline is 3/10
--- NOTE | 2023-05-15 15:24 | PCPTNOTE ---
Pt presented to therapy at appropriate time today. However reports she feels she may have injured herself at work today. Pt requests to reschedule her appointment as she also is very stressed and has a lot going on outside of therapy. Pt tearful and explained situation that she and her children are currently homeless and having to move back into her parent's home. Pt advised to rest, ice, and use her TENS unit, that we can reschedule her appointment. Encouraged to review her worker's compensation rights and requirements as well if she feels an injury occurred at work. Will reschedule pt for reevaluation as able.
--- NOTE | 2023-05-21 17:12 | PTOPEVAL1 ---
Assessment and note entered by Pao Pennington, PT Evaluation Information Assessment Status Discharge Diagnosis Low back pain, dorsalgia Subjective Information Pt reports her back is improved from last week after feels like hurt herself at work. That night rested, took a muscle relaxer and felt some better then next day. Doesn't feel like her baseline yet from last week. Hip pain with walking has improved. Has done a lot of walking recently. Still has pain in back with work related activities and heavy lifting. Was able to move a mattress around her house and upstairs but had increased pain and heart rate with this. Self-percieved improvement: Feels better than when started. States wouldn't be able to do the work if hadn't been coming to therapy. States her back doens't hurt every day when gets off work, but that some days her back pain isn't worse with work. States baseline pain levels is a 3/10 Reports has been able to give her kids a baht without increased pain now. Reported Pain Level Pain Score 4: Self Report Assessment PT Clinical Summary Pt has been attending therapy consistently for her low back pain. Prior to last week had improved to what she would consider her baseline at 3/10, was able to walk further without sid hip pain, and was able to work with tolerable discomfort. Pt shows improved strength and awareness of posture however has yet to progress to high level stability training such as with dynamic activity and lifting techniques which she does often at work. Recent flare up pt attributes to lifting a lot at work that day. Thus patient would benefit from continued therapy for high level strength and dynamic stability training to minimze frequency of flare ups and decrease probability of injury. Plan of Care Interventions Electrical Stimulation,Hot Pack/Cold Pack,Manual Therapy,Neuro Re-education,Patient/Caregiver Educati,Therapeutic Activities,Therapeutic Exercise,Ultrasound PT Services Indicated Yes Treatment Frequency and 1-2x weekly x 4 weeks Duration
--- NOTE | 2023-06-25 08:37 | PCPTNOTE ---
Admitting Provider: Attending Provider: ROMULO Dickson Patient:Julissa Castillo Date of :1985 Patient has not returned for any further treatments since 05/20/2023, therefore she will be discharged at this time. Patient?s initial visit was on 03/26/2023 12:30 and she had a total of 12 visits. Her last reevaluation was 05/20/23 and she has had multiple last minute cancellations since this time. She had been doing well with therapy, was independent in her home program and reported improvements in her abilities and pain levels. However per department policy, pt must be discharged due to having too many last minute cancellations. The goals have been partially met. Thank you for referring this patient to [facility]. Please review, sign, date and return this discharge summary BRINDA. I have been updated about the patient's current status and I agree with discharge from the above service at this time. Referring Physician Date
== END 2023-06-24 23:59 | disposition home or self-care (01) ==
LOC: ANHHIPT 14:45
PROVIDERS: PCP Physician Assistant Medical; Visit Provider Nurse Practitioner Family
DX: M54.50 Low back pain, unspecified (principal); M54.9 Dorsalgia, unspecified
CPT/HCPCS: 97014; 97110; 97112; 97140; 97161; 97750; G0283

== ENCOUNTER 2023-12-19 01:12 | Day surgery (SDC) | payer OTHER, SELFPAY ==
[2023-12-11 14:39] VITALS: BMI 25.0
--- NOTE | 2023-12-11 14:48 | PC.NURSE ---
Report to the Outpatient Waiting Room, entrance under the green pavilion located off [facility], at time 6:00 on date 12/19/23. Planned Procedure Time: 7:30. Time changes happen often and if your time is changed the preop area will call you the afternoon before. - You and your visitor will be asked to self-screen and do not enter if you have any COVID symptoms. - A mask is optional within the hospital at this time. Patients may have clear liquids (water, carbonated beverages, clear teas, apple juice) until 3 hours prior to surgery (4:30) with a maximum of 20 ounces. - No food from midnight until time of surgery Take the following medications with a SIP of water the morning of surgery: INHALER IF NEEDED (AND BRING WITH YOU) DO NOT STOP ANY OF YOUR OTHER PRESCRIPTION MEDICATIONS PRIOR TO SURGERY ?EXCEPT THE FOLLOWING Medications to discontinue per physician: N/A Date to take last dose: N/A Please no make-up, nail israeli, hairspray, perfume, deodorant, or body powder the day of surgery. No jewelry (including any body piercings) or valuables the day of surgery, leave them at home. Please take a shower or bath the night before, or the morning of, surgery with an antibacterial soap. Wear comfortable, loose fitting clothing. - Jewelry must be removed prior to entering the operating room. Rings and piercings that are not removed may be cut off. - The hospital will not accept responsibility for valuables. - Please leave all valuables, including medications, at home the day of surgery. If you are going home after surgery, a licensed driver medic must drive you home. - NO public transportation without another adult if you receive anesthesia. - We recommend that an adult stay with you for 24 hours following discharge. - We also recommend that you do not drive, make important decision, drink alcoholic beverages, or take any drugs that were not prescribed by your health care provider for at least 24 hours after your discharge time. Follow any additional instructions given to you from your surgeon. If you or anyone in your household have experienced Covid symptoms in the past week, please notify your surgeon or the nurse liaison at the phone number below for possible testing. Telephone instructions given to PT - SABINA and asked if any additional questions and then verbalized understanding. Patient advised to call surgeon office or pre surgery nurse liaison [phone] if any additional questions.
[2023-12-19] VITALS (8 sets, daily range): BP systolic 94–148; BP diastolic 66–98; PULSE 80–99; RESP 10–15; TEMP 36.1–36.5; O2SAT 99–100; BMI 24.0
[2023-12-19] MEDS: LACTATED RINGERS 1,000 ML 30 ML IV CONT (06:55)
--- NOTE | 2023-12-19 07:00 | ECG_ITS ---
SEE SCANNED COPY FOR CONFIRMED REPORT MTDD
--- NOTE | 2023-12-19 07:08 | WPDANESEPPF ---
Anes - Initial Pre Proc Eval Procedure: Operation Date: 12/19/23 07:30 Proposed Procedures p Excisional Biopsy of Scalp Times Two, Excision of Right Supraclavicular Mass - Breanna Hughes MD Date/Time: 12/19/23 07:08 Surgeon: Breanna Hughes MD Pre Op Diagnosis: rt Supraclavicular Mass, pilar cyst x2 Patient Data Age: 38 Gender: F Height: 1.6 m Weight: 64 kg Allergies Allergy/AdvReac Type Severity Reaction Status Date / Time levofloxacin Allergy Mild Itching Verified 12/11/23 14:37 Quinolones Allergy Mild Itching Verified 12/11/23 14:37 silver nitrate Allergy Unknown Hives Verified 12/11/23 14:37 silver sulfadiazine Allergy Unknown Hives Verified 12/11/23 14:37 nickel Allergy Hives Verified 12/11/23 14:37 Home Medications Medication Instructions Recorded Confirmed Type peak flow meter #1 ea 12/07/21 12/10/23 Rx ibuprofen 200 mg capsule See Rx Instructions PO Q8H PRN Pain 11/06/22 12/11/23 History albuterol sulfate 90 mcg/actuation 1 inh inhalation Q4H PRN shortness 11/28/23 12/11/23 Rx aerosol inhaler of breath or wheezing #8.5 grams amlodipine 5 mg tablet 5 mg PO DAILY #90 tabs 11/28/23 12/11/23 Rx lisinopril 10 mg tablet 10 mg PO DAILY #90 tabs 11/28/23 12/11/23 Rx montelukast 10 mg tablet 10 mg PO QHS #90 tabs 11/28/23 12/11/23 Rx Patient hx anesthesia problems: none Family hx anesthesia problems: none Results Review: All pre-operative results and documents have been reviewed as part of the pre-operative evaluation. [facility] Past Medical History Medical History Anemia Anxiety Bilateral ureteral reflux Depression Dysphonia plicae ventricularis Enlarged lymph node in neck Environmental allergies Folic acid deficiency GERD (gastroesophageal reflux disease) Greater tuberosity of humerus fracture right, October 2019 Hoarse voice quality Hypertension LPRD (laryngopharyngeal reflux disease) Moderate persistent asthma, uncomplicated Seasonal allergies Tobacco abuse Surgical History Surgical History H/O excision of mass scalp cyst x 4, mid frontal 4x3, L post 4x3, L mid 4x3, R mid 3x2 History of delivery History of shoulder surgery History of urologic surgery Bilateral renal reflux correction Social History Social History Smoking packs per day: 1 Smoking cigarettes per day: 20.0 Years smoked: 25 Smoking pack-years: 25.00 Smoking status: Current every day smoker Tobacco type: cigarettes Alcohol intake: current Drinks per week: 2 Alcohol use details: VERY RARE Substance use: current Substance use type: marijuana Other substance usage details: cannabis to help with sleep Last use: 5 days ago Lack of Transportation: No Lack of Food: Never True Current Housing: I Have Housing Concerned About Future Housing: No Difficulty Paying Gas/Electric Bills: No Difficulty Paying for Meds: No Currently Unemployed: No Education: High School Diploma/GED Difficulty w/ Childcare or Family Care: YES Living arrangements: with family Occupation/Education: unemployed Gender identity (if verbalized by the patient): Female Sexual Orientation (if Verbalized by the Patient): Straight or Heterosexual Spiritual care concerns: No Anes - Eval Final PreProcedure Day of Procedure 12/19/23 07:08 Patient weight: normal Heart: regular rate and rhythm Lungs: clear to auscultation Airway: Mallampati scale class II and special considerations (Several caps, none loose. ) Neurological: alert and oriented Last oral intake: >/= 8 hours ASA classification: II Emergent: no Anesthetic plan: proceed Anesthesia type and monitoring: general and standard monitoring Results Review: All pre-operative results and documents have been reviewed as part of the pre-operative evaluation.
--- NOTE | 2023-12-19 07:25 | WPDHPUPDATE1 ---
History and Physical Update Update Date/Time: 12/19/23 07:25 History and Physical has been reviewed, including an updated exam of the patient. There are NO changes in the patient's condition. Risks, benefits, and alternatives have been discussed and questions answered. Patient agrees to proceed with procedure.
[2023-12-19] MEDS: ceFAZolin 2 GM/D5W 50 ML 2 GM/50 ML BAG IVPB (07:38)
--- NOTE | 2023-12-19 08:36 | W.PM.PROC2 ---
Procedure Note - Detailed Date of Procedure 12/19/23 Pre-op Diagnosis right supraclavicular mass, pilar cyst x2 Post-op Diagnosis Same Procedure Performed Excisional biopsy right supraclavicular mass measuring 4 x 3 cm, Pilar cyst x2 measuring 3 x 2 cm and 2 x 2 cm Surgeon Breanna Hughes MD Anesthesia General and Local Indications 38-year-old female presenting to the office with enlarging right supraclavicular mass. The patient reports that the mass has been slowly enlarging over the last month. The patient also is noted to some enlarging Pilar cyst that are symptomatic at this point. Findings submuscular supraclavicular cystic mass measuring 4 x 3 cm, Pilar cyst x2 Description of Procedure The patient is taken to the operating room and placed in the supine position. After adequate induction general anesthesia, the patient was prepped and draped in the sterile fashion. Time-out was then done to patient's identity, as well as the procedure performed. An incision was made over the supraclavicular mass. This was taken down through the dermis into the subcutaneous tissue. The mass was noted to be deep to the and the muscle was split in the direction of its fibers. A muscular cystic was noted. Using careful blunt dissection with the hemostat, I was able to excise this cystic in full. The mass measured approximately 4 x 3 cm. It was noted to contain a dark thin fluid. The cavity was noted to be hemostatic and no other pathology was noted. I then localized the cavity. The subcutaneous tissue was closed with 3-0 Vicryl suture. The skin was closed with 4-0 Monocryl subcuticular suture. Dermabond was placed on the wound. I then made an incision over the larger Pilar cyst in the right anterior scalp. This was taken down through the dermis and the cyst was noted. Using careful blunt and sharp dissection, was able to excise this cyst in full. The cyst was noted to measure 3 x 2 cm. I then gained hemostasis with the Bovie cautery and no other pathology was noted. I then locally anesthetized the cavity. This skin was closed with skin angela x2. Lastly, an incision was made over the right posterior Pilar cyst. Again the cyst was just deep to the dermis. I was able to bluntly and sharply dissect around the cyst and removed completely. The cyst measured approximately 2 x 2 cm. Hemostasis was again gained with the Bovie cautery and no other pathology was noted in the area. I then locally anesthetized the cavity. The skin was closed with skin angela x2. Sterile dressing was placed on all these incisions. The patient tolerated the procedures well and was extubated postoperatively. She will be sent to the recovery room in stable condition. Estimated Blood Loss 5 Drains No Packing No Pathology Yes Complications No immediate complications Condition Stable Disposition PACU [facility] Billing Surgery - Charge Forward: Surgery Billing
[2023-12-19] MEDS: BUPIVACAINE/EPINEPHRINE 0.5% 30 ML VIAL 20 ML INFILTRATE (08:43)
[2023-12-19] MEDS: oxyCODONE HCL (*CRX) 5 MG TAB IR PO (09:36)
== END 2023-12-19 10:03 | disposition home or self-care (01) ==
PROVIDERS: PCP Physician Assistant Medical; Visit Provider Surgery
PROC: (CPT 21554; principal; 2023-12-19 07:30)
DX: D11.7 Benign neoplasm of other major salivary glands (principal); L72.11 Pilar cyst; I10 Essential (primary) hypertension; J45.40 Moderate persistent asthma, uncomplicated; F17.210 Nicotine dependence, cigarettes, uncomplicated; F12.90 Cannabis use, unspecified, uncomplicated
CPT/HCPCS: 21554; 11426 ×2; 88304; 93005; A9270; J0690; J1100; J2250; J2405; J2704; J3010; J7120

== ENCOUNTER 2024-01-25 15:41 | Emergency (ER) | payer OTHER, SELFPAY ==
[2024-01-25 15:49] VITALS: BP 127/95; PULSE 103; RESP 24; TEMP 36.1; O2SAT 98
--- NOTE | 2024-01-25 15:51 | ED.ASTHMA ---
HPI - Asthma General Chief Complaint: Asthma Stated Complaint: Asthma Attack Time Seen by Provider: 01/25/24 15:54 Source: patient and RN notes reviewed Mode of arrival: ambulatory Limitations: no limitations History of Present Illness HPI Narrative: 38-year-old female presents with concern for shortness of breath with asthma. She reports she has had increased need of her inhaler for the last 3-4 days. She reports she has used her nebulizer when she is at home and is using her albuterol inhaler very frequently. Reports she used to 12 times in 1 day. She denies fever, body aches, chills, sweats. She denies nasal congestion, rhinorrhea. MD complaint: asthma attack Related Data Home Medications Medication Instructions Recorded Confirmed ibuprofen 200 mg capsule See Rx Instructions PO Q8H PRN Pain 11/06/22 01/25/24 albuterol sulfate 2.5 mg/3 mL 2.5 mg inhalation PRN PRN 01/25/24 01/25/24 (0.083 %) solution for nebulization Shortness Of Breath Or Wheezing Allergies Allergy/AdvReac Type Severity Reaction Status Date / Time levofloxacin AdvReac Mild Rash Verified 01/25/24 16:00 nickel AdvReac Mild Rash Verified 01/25/24 16:00 Quinolones AdvReac Mild Rash Verified 01/25/24 16:00 Review of Systems Review of Systems: CONSTITUTIONAL: Denies malaise, chills, sweats, or fever. EYES: Denies visual changes, redness, or discharge. ENT: Denies rhinorrhea, congestion, sinus pain, otalgia and sore throat. CARDIOVASCULAR: Denies chest pain, palpitations, or edema. RESPIRATORY: Reports cough, wheezing, dyspnea. GASTROINTESTINAL: Denies abdominal pain, nausea, vomiting, diarrhea SKIN: Denies rash or itching. MUSCULOSKELETAL: Denies myalgia. NEUROLOGIC: Denies headache. All systems reviewed & are unremarkable except as noted in HPI and below PMFSH Past Medical History Medical History (Updated 01/25/24 @ 16:01 by Jeanne Rico NP) Anemia Anxiety Bilateral ureteral reflux Depression Dysphonia plicae ventricularis Enlarged lymph node in neck Environmental allergies Folic acid deficiency GERD (gastroesophageal reflux disease) Greater tuberosity of humerus fracture right, October 2019 Hypertension LPRD (laryngopharyngeal reflux disease) Moderate persistent asthma, uncomplicated Seasonal allergies Tobacco abuse Surgical History Surgical History H/O excision of mass scalp cyst x 4, mid frontal 4x3, L post 4x3, L mid 4x3, R mid 3x2 12/19/23 History of delivery History of shoulder surgery History of urologic surgery Bilateral renal reflux correction Social History Social History Smoking packs per day: 1 Smoking cigarettes per day: 20.0 Years smoked: 25 Smoking pack-years: 25.00 Smoking status: Current every day smoker Tobacco type: cigarettes Alcohol intake: current Drinks per week: 2 Alcohol use details: VERY RARE Substance use: current Substance use type: marijuana Other substance usage details: cannabis to help with sleep Last use: 5 days ago Do You Feel Safe in your Home?: Yes Lack of Transportation: No Lack of Food: Sometimes True Current Housing: I Have Housing Concerned About Future Housing: No Difficulty Paying Gas/Electric Bills: No Difficulty Paying for Meds: No Currently Unemployed: No Education: High School Diploma/GED Difficulty w/ Childcare or Family Care: YES Living arrangements: with family Occupation/Education: unemployed Gender identity (if verbalized by the patient): Female Sexual Orientation (if Verbalized by the Patient): Straight or Heterosexual Spiritual care concerns: No Comments At time of signature, agree with nursing past medical, surgical, social and family history. There is no relevant family history pertinent to the presenting complaint Exam Narrative: GENERAL: Well-appearing, well-nourished, a
== END 2024-01-25 16:03 | disposition home or self-care (01) ==
PROVIDERS: Emergency Provider Nurse Practitioner
DX: J45.901 Unspecified asthma with (acute) exacerbation (principal); F17.210 Nicotine dependence, cigarettes, uncomplicated; F12.90 Cannabis use, unspecified, uncomplicated; K21.9 Gastro-esophageal reflux disease without esophagitis; I10 Essential (primary) hypertension
CPT/HCPCS: 99213; G0463

== ENCOUNTER 2024-03-28 15:30 | Emergency (ER) | payer OTHER, SELFPAY ==
--- NOTE | ~2024-03-28 | CT_ITS ---
EXAMINATION: CT abdomen pelvis wo con DATE: 03/28/2024 16:49 INDICATION: Left flank pain, nausea and vomiting. History of kidney stones. TECHNIQUE: Computed tomography (CT) of the abdomen and pelvis was performed without intravenous contr ast. Automated exposure control and iterative reconstruction technique were employed. Exam dose: 170 .77 mGy-cm total exam DLP. COMPARISON: 11/12/2018 CT abdomen pelvis FINDINGS: Fat-containing right foramen of Bochdalek hernia. The lung bases are clear of infiltrate or consolidation. Normal heart size. No pericardial or pleural effusion. Small sliding hiatal hernia. The liver, gallbladder, bile ducts, spleen, pancreas and pancreatic duct as well as adrenal glands ap pear unremarkable. There is prominent diffuse thickening of the urinary bladder wall which appears more prominent in the left trigone area. There is prominent left hydroureteronephrosis. No urinary tract calculus is ident ified. This raises concern for obstruction at the left trigone, possibly due to a malignant bladder l esion. Urologic oh consultation and workup are recommended. Several pinpoint nonobstructing right renal calculi. No left renal calculus is noted. There is bilateral renal scarring suggesting bilateral chronic pyelonephritis. Normal caliber of the abdominal aorta. No intraperitoneal or retroperitoneal or pelvic mass lesion or adenopathy or ascites is noted otherwise. Normal retrocecal appendix. No bowel obstruction or intraperitoneal free air is detected. Interval increased size of an osteosclerotic lesion of the left iliac crest, stable osteosclerotic le bob of the posterior left acetabulum since 11/12/2018. Interval increase in size of the left scleroti c lesion is of concern; consider radio nuclide bone scan. IMPRESSION: Thickened urinary bladder wall, apparently more prominent at the left trigone, with prom inent left hydroureteronephrosis. Bladder malignancy must be considered. Urological consultation is r ecommended. 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 Reviewed, dictated and finalized at [facility]. IMPRESSION: Thickened urinary bladder wall, apparently more prominent at the l eft trigone, with prominent left hydroureteronephrosis. Bladder malignancy must be considered. Urological consultation is recommended. Increased size of left iliac osteosclerotic lesions since 11/12/2018: Consider r adionuclide bone scan to evaluate for possible osteosclerotic metastases Bilateral chronic pyelonephritis Several pinpoint nonobstructing right renal calculi Small sliding hiatal hernia
[2024-03-28 15:32] VITALS: BP 120/89; PULSE 82; RESP 16; TEMP 36.6; O2SAT 97
[2024-03-28 15:49] LABS: Basophils Absolute Auto 0.1 K/mm3 (0.0-0.1); Basophils Percent Auto 0.5 % (0.2-1.2); Eosinophils Absolute Auto 0.1 K/mm3 (0-0.3); Eosinophils Percent Auto 0.5 % (0-4.4); Hematocrit 39.1 % (37.0-47.0); Hemoglobin 13.4 g/dL (12.0-15.0); Immature Granulocyte Absolute 0.02 K/mm3 (0.00-0.031); Immature Granulocyte Percent A 0.2 % (0-0.5); Lymphocytes Absolute Auto 2.26 K/mm3 (0.9-3.2); Lymphocytes Percent Auto 20.3 % (18.3-44.2); Mean Corpuscular HGB Conc 34.3 g/dl (32-36); Mean Corpuscular Hemoglobin 31.6 pg (26-34); Mean Corpuscular Volume 92.2 fl (80-100); Mean Platelet Volume 10.3 fl (7.4-10.4); Monocytes Absolute Auto 0.5 K/mm3 (0.1-0.6); Monocytes Percent Auto 4.1 % (2.6-8.5); Neutrophils Absolute Auto 8.3 K/mm3 (1.3-6.7); Neutrophils Percent Auto 74.4 % (45.5-73.1); Platelet Count Result 246 k/mm3 (150-375); Red Blood Count 4.24 M/mm3 (4.2-5.4); Red Cell Distribution Width 13.2 % (11.5-14.5); White Blood Count 11.1 K/mm3 (4.5-10.0)
[2024-03-28 16:00] LABS: Alanine Aminotransferase 12 U/L (6-35); Albumin Level 4.3 g/dL (3.5-5.1); Alkaline Phosphatase 89 U/L (38-126); Anion Gap 10 mmol/L (4-12); Aspartate Amino Transferase 24 U/L (14-36); Bilirubin,Total 0.6 mg/dL (0.2-1.3); Blood Urea Nitrogen 16 mg/dL (7-17); Calcium 8.7 mg/dL (8.4-10.2); Carbon Dioxide 22 mmol/L (22-30); Chloride 104 mmol/L (98-107); Estimated CRCL calculation 77 ml/min; Estimated Glomerular Filt Rate > 60; Glucose 111 mg/dL (65-110); Potassium 3.6 mmol/L (3.4-5.0); Sodium 136 mmol/L (137-145)
[2024-03-28 16:01] LABS: BEDSIDEPREGUCG Negative
[2024-03-28] MEDS: ONDANSETRON INJ 4 MG/2 ML VIAL IV PUSH (16:16)
[2024-03-28] MEDS: MORPHINE SULFATE (*CRX) 4 MG/ML INJ IV PUSH (16:17)
[2024-03-28] MEDS: SODIUM CHLORIDE 0.9% IV 1,000 ML 999 ML IV CONT (16:18)
[2024-03-28 16:35] LABS: Add Urine Microscopic? YES; Appearance Urine Turbid (Clear); Bacteria Urine 4+ /hpf; Bilirubin Urine Negative (Negative); Blood Urine 3+ (Negative); Color Urine Yellow (Yellow); Glucose Urine UA Negative (Negative); Ketones Urine Negative (Negative); Leukocyte Esterase Ur 3+ LEU/UL (Negative); Need Manual Microscopic Reviewed; Nitrate Urine Positive (Negative); Protein Urine 2+ mg/dL (Negative); RBC Urine >100 /hpf (0-2); Specific Grav Ur 1.016 (1.001-1.035); Squamous Epithelial Cell Urine Few /hpf (Few); Urobilinogen Urine 0.2 mg/dL (<2.0); WBC Urine >100 /hpf (0-3); pH Urine 5.5 (5.0-9.0)
--- NOTE | 2024-03-28 16:53 | ED.GENADULT ---
HPI - General Adult General Chief complaint: Urogenital-Female Stated complaint: kidney stones Time Seen by Provider: 03/28/24 15:46 History of Present Illness HPI narrative: Patient is a 38-year-old female who presents ER with concerns for kidney stone. Patient developed flank pain that radiates into her abdomen yesterday evening. Denies fevers or chills. Patient has dribbling urination. She also reports dysuria. No alleviating factors for her discomfort. Has history kidney stones and abnormal ureter due to reflux. Related Data Home Medications Medication Instructions Recorded Confirmed ibuprofen 200 mg capsule See Rx Instructions PO Q8H PRN Pain 11/06/22 02/14/24 albuterol sulfate 2.5 mg/3 mL 2.5 mg inhalation PRN PRN 01/25/24 02/14/24 (0.083 %) solution for nebulization Shortness Of Breath Or Wheezing Allergies Allergy/AdvReac Type Severity Reaction Status Date / Time levofloxacin AdvReac Mild Rash Verified 02/14/24 08:07 nickel AdvReac Mild Rash Verified 02/14/24 08:07 Quinolones AdvReac Mild Rash Verified 02/14/24 08:07 Review of Systems Review of Systems: All systems reviewed & are unremarkable except as noted in HPI and below Constitutional: Constitutional: Reports no additional constitutional complaints ENT: Reports system reviewed and no additional complaints, except as documented Cardiovascular: Cardiovascular: Reports no additional cardiovascular complaints Respiratory: Respiratory: Reports no additional respiratory complaints Gastrointestinal: Gastrointestinal: Reports abdominal pain, Denies diarrhea, Reports nausea and Reports vomiting Genitourinary: Genitourinary: Denies nocturia, Reports dysuria and Reports flank pain PMF Past Medical History Medical History Anemia Anxiety Bilateral ureteral reflux Depression Dysphonia plicae ventricularis Enlarged lymph node in neck Environmental allergies Folic acid deficiency GERD (gastroesophageal reflux disease) Greater tuberosity of humerus fracture right, October 2019 Hypertension LPRD (laryngopharyngeal reflux disease) Moderate persistent asthma, uncomplicated Seasonal allergies Tobacco abuse Surgical History Surgical History H/O excision of mass scalp cyst x 4, mid frontal 4x3, L post 4x3, L mid 4x3, R mid 3x2 12/19/23 History of delivery History of shoulder surgery History of urologic surgery Bilateral renal reflux correction Social History Social History Smoking packs per day: 1 Smoking cigarettes per day: 20.0 Years smoked: 25 Smoking pack-years: 25.00 Smoking status: Current every day smoker Tobacco type: cigarettes Alcohol intake: current Drinks per week: 2 Alcohol use details: VERY RARE Substance use: current Substance use type: marijuana Other substance usage details: cannabis to help with sleep Last use: 5 days ago Do You Feel Safe in your Home?: Yes Lack of Transportation: No Lack of Food: Sometimes True Current Housing: I Have Housing Concerned About Future Housing: No Difficulty Paying Gas/Electric Bills: No Difficulty Paying for Meds: No Currently Unemployed: No Education: High School Diploma/GED Difficulty w/ Childcare or Family Care: YES Living arrangements: with family Occupation/Education: unemployed Gender identity (if verbalized by the patient): Female Sexual Orientation (if Verbalized by the Patient): Straight or Heterosexual Spiritual care concerns: No Exam Narrative: GENERAL: Uncomfortable-appearing, well-nourished, and in no acute distress. HEAD: Normocephalic, atraumatic. ENT: Mucous membranes moist. CHEST: Clear to auscultation. No respiratory distress. HEART: Regular rate and rhythm. Normal peripheral pulses. ABDOMEN: Soft, nontender, nondistended. No
[2024-03-28 18:52] VITALS: BP 137/75; PULSE 78; RESP 18; TEMP 37.2; O2SAT 100
== END 2024-03-28 18:56 | disposition home or self-care (01) ==
PROVIDERS: Emergency Provider Emergency Medicine
DX: N12 Tubulo-interstitial nephritis, not specified as acute or chronic (principal); N32.89 Other specified disorders of bladder; I10 Essential (primary) hypertension; J45.40 Moderate persistent asthma, uncomplicated; K21.9 Gastro-esophageal reflux disease without esophagitis; Z86.2 Personal history of diseases of the blood and blood-forming organs and certain disorders involving the immune mechanism; F17.210 Nicotine dependence, cigarettes, uncomplicated; N13.30 Unspecified hydronephrosis; M89.9 Disorder of bone, unspecified; N20.0 Calculus of kidney; K44.9 Diaphragmatic hernia without obstruction or gangrene
CPT/HCPCS: 36415; 74176; 80053; 81001; 81025; 85025; 87077; 87086; 87088; 87186; 96365; 96375; 99284; J0696; J2270; J2405; J7030

== ENCOUNTER 2024-05-28 13:04 | Outpatient (CLI) | payer OTHER, SELFPAY ==
--- NOTE | ~2024-05-28 | NM_ITS ---
EXAMINATION: JAYLEEN hightower renal scan DATE: 05/28/2024 14:37 INDICATION: Left kidney hydronephrosis. TECHNIQUE: 8 mCi Tc-99m MAG3 was administered IV. 40 mg furosemide was administered IV immediately a fterward. The patient was scanned in the supine position. A posterior abdominal radionuclide angiogra m was obtained. A subsequent time course of static images of the kidneys, ureters, and bladder was ob tained. COMPARISON: CT abdomen and pelvis 03/28/2024 FINDINGS: The posterior abdominal radionuclide angiogram and sequential static images show normal siz e, position, and morphology of the kidneys. Peak renal parenchymal uptake was 2 min in right kidney a nd 2 min in left kidney (normal peak 3-5 minutes). The relative early renal uptake was 48% on the ri ght and 52% on the left (<40% is abnormal). No abnormalities of the ureters or bladder are seen. T1/2 for clearance of activity from the right kidney and proximal collecting system was 7 minutes. T1/2 for clearance of activity from the left kidney and proximal collecting system was 7 minutes. IMPRESSION: 1. Symmetric kidney function. 2. No delay in contrast clearance from either kidney to suggest fixed obstruction. Reviewed, dictated and finalized at [facility]. IMPRESSION: 1. Symmetric kidney function. 2. No delay in contrast clearance from either kidney to suggest fixed obstruct ion.
== END 2024-05-28 13:05 | disposition home or self-care (01) ==
PROVIDERS: PCP Nurse Practitioner Family
DX: N13.30 Unspecified hydronephrosis (principal)
CPT/HCPCS: 78708; A9562; J1940

== ENCOUNTER 2024-07-29 12:00 | Emergency (ER) | payer OTHER, SELFPAY ==
[2024-07-29 12:15] VITALS: BP 149/96; PULSE 94; RESP 18; TEMP 36.9; O2SAT 98
--- NOTE | 2024-07-29 12:34 | ED.URI ---
HPI - URI/Sore Throat General Chief Complaint: Upper Respiratory Infection Stated Complaint: cough / congestion Time Seen by Provider: 07/29/24 12:53 Source: patient, RN notes reviewed and old records reviewed Mode of arrival: ambulatory Limitations: no limitations History of Present Illness HPI Narrative: patient presents with complaints 2 days of cough, runny nose, wheezing, ear pain. She reports that she does not believe she has had a fever. Patient does have history of asthma. She states that she has been using her albuterol inhaler more than she usually does. She does report that this is giving her good relief. Although she complains of some intermittent wheezing, she does deny any shortness of breath. She denies any injury or trauma. She voices no other concerns or complaints at this time. Related Data Allergies Allergy/AdvReac Type Severity Reaction Status Date / Time levofloxacin AdvReac Mild Rash Verified 07/29/24 12:14 nickel AdvReac Mild Rash Verified 07/29/24 12:14 Quinolones AdvReac Mild Rash Verified 07/29/24 12:14 Review of Systems Review of Systems: All systems reviewed & are unremarkable except as noted in HPI and below Constitutional: Constitutional: Reports no additional constitutional complaints ENT: Reports system reviewed and no additional complaints, except as documented and Reports otalgia Cardiovascular: Cardiovascular: Reports no additional cardiovascular complaints Respiratory: Respiratory: Reports no additional respiratory complaints, Reports chest congestion, Reports cough and Reports wheezing Gastrointestinal: Gastrointestinal: Reports no additional gastrointestinal complaints [facility], [facility] Past Medical History Medical History Anemia Anxiety Bilateral ureteral reflux Depression Dysphonia plicae ventricularis Enlarged lymph node in neck Environmental allergies Folic acid deficiency GERD (gastroesophageal reflux disease) Greater tuberosity of humerus fracture right, October 2019 Hypertension LPRD (laryngopharyngeal reflux disease) Moderate persistent asthma, uncomplicated Seasonal allergies Tobacco abuse Surgical History Surgical History H/O excision of mass scalp cyst x 4, mid frontal 4x3, L post 4x3, L mid 4x3, R mid 3x2 12/19/23 History of delivery History of shoulder surgery History of urologic surgery Bilateral renal reflux correction Social History Social History Smoking packs per day: 1 Smoking cigarettes per day: 20.0 Years smoked: 25 Smoking pack-years: 25.00 Smoking status: Current every day smoker Tobacco type: cigarettes Alcohol intake: current Drinks per week: 2 Alcohol use details: VERY RARE Substance use: current Substance use type: marijuana Other substance usage details: cannabis to help with sleep Last use: 5 days ago Do You Feel Safe in your Home?: Yes Lack of Transportation: No Lack of Food: Sometimes True Current Housing: I Have Housing Concerned About Future Housing: No Difficulty Paying Gas/Electric Bills: No Difficulty Paying for Meds: No Currently Unemployed: No Education: High School Diploma/GED Difficulty w/ Childcare or Family Care: YES Living arrangements: with family Occupation/Education: unemployed Gender identity (if verbalized by the patient): Female Sexual Orientation (if Verbalized by the Patient): Straight or Heterosexual Spiritual care concerns: No Comments At the time of my signature, I reviewed and agree with the nursing past medical, surgical, social, and family history. There is no relevant family history pertinent to the patient complaint. Exam Const: General: cooperative, no acute distress, alert and awake Orientation/consciousness: oriented to person, oriented to place and oriented to time HENMT: Head: normal to inspection Ears: TM abnormal with fluid behind the TM bilateral Resp: Effort & Inspection: normal respiratory effort and able to speak in complete sentences Auscultation: clear to auscultation bilaterally, no crackles, no rales, no rhonchi and no wheezes Cardio: Palpation: normal PMI Rate: regular rate Rhythm: regular rhythm Heart sounds: S1 normal heart sound present and S2 normal heart sound present Neuro: General: oriented to person, oriented to place and oriented to time Cranial nerves: Yes CN's II-XII intact bilaterally Psych: Appearance: grossly normal Thought process: Normal thought process present Insight: Good insight present (Psych) Judgement: Good judgement present (Psych) Course Course Level of Care: Express Care Visit Vital Signs Vital signs: Vital Signs Temperature 98.4 F 07/29/24 12:15 Pulse Rate 94 07/29/24 12:15 Respiratory Rate 18 07/29/24 12:15 Blood Pressure 149/96 H 07/29/24 12:15 Pulse Oximetry 98 07/29/24 12:15 Oxygen Delivery Room Air 07/29/24 12:15 Temperature 98.4 F 07/29/24 12:15 Pulse Rate 94 07/29/24 12:15 Respiratory Rate 18 07/29/24 12:15 Blood Pressure 149/96 H 07/29/24 12:15 Pulse Oximetry 98 07/29/24 12:15 Oxygen Delivery Room Air 07/29/24 12:15 Reviewed MDM - URI/Sore Throat MDM Narrative Medical decision making narrative: Asthmatic patient in no distress. Reports intermittent wheezing in setting of URI symptoms. Start prednisone. continue albuterol per prescriber instructions. Follow with primary care provider, emergency department for new or worse symptoms Discharge instructions reviewed with patient, as well as provided in writing per nursing staff. The instructions also include specific and strict return/GO TO THE ER as well as f/u information. All questions have been answered, and the patient deny any further questions with discharge and discharge plan. Some parts of this dictation were generated by voice recognition software and may contain typographical and/or grammatical inaccuracies. Differential Diagnosis Differential diagnosis: Likely upper respiratory infection, otitis media, influenza and pharyngitis Medical Records Attestation: I reviewed the patient's medical records. Discharge Plan Discharge Clinical Impression: Asthma exacerbation Qualifiers: Asthma severity: unspecified severity Asthma persistence: unspecified Qualified Code(s): J45.901 - Unspecified asthma with (acute) exacerbation Patient Disposition: Home, Self-Care Condition: Stable Instructions: Antibiotic Form, Asthma (ED) Additional Instructions: use medications as prescribed. Follow with primary care provider. Emergency department for new or worsening symptoms. Blood pressure is elevated today at 149/96. Normal blood pressure is 120/80. Please discuss this with your primary care provider Patient Language: Uzbek Prescriptions: New prednisone 50 mg tablet 50 mg PO DAILY Qty: 5 0RF No Action (DME) peak flow meter Device See Rx Instructions .Route Qty: 1 0RF Rx Instructions: use as needed to monitor asthma albuterol sulfate 90 mcg/actuation HFA aerosol inhaler 1 inh inhalation Q4H PRN (Reason: shortness of breath or wheezing) Qty: 8.5 11RF amlodipine 5 mg tablet 5 mg PO DAILY Qty: 90 1RF Patient Comments: TAKES AT HS montelukast 10 mg tablet 10 mg PO QHS Qty: 90 1RF citalopram 20 mg tablet 20 mg PO DAILY Qty: 90 1RF lisinopril 20 mg tablet 20 mg PO DAILY Qty: 90 0RF valacyclovir 500 mg tablet 500 mg PO DAILY Qty: 90 0RF albuterol sulfate 2.5 mg /3 mL (0.083 %) solution for nebulization 2.5 mg inhalation PRN PRN (Reason: Shortness Of Breath Or Wheezing) Qty: 75 5RF Follow-up/Referrals: PHYSICIAN,SERVICENOW ADMINISTRATOR [Primary Care Provider] - Stand Alone Forms: Work/School Release IP Time of Disposition: 12:59
== END 2024-07-29 13:00 | disposition home or self-care (01) ==
PROVIDERS: Emergency Provider Nurse Practitioner Family
DX: J45.901 Unspecified asthma with (acute) exacerbation (principal); F41.8 Other specified anxiety disorders; K21.9 Gastro-esophageal reflux disease without esophagitis; I10 Essential (primary) hypertension; F17.210 Nicotine dependence, cigarettes, uncomplicated
CPT/HCPCS: 99213; G0463